=== PATIENT | female | born 1980 | race Caucasian/White ===

== ENCOUNTER → 2018-01-16 10:49 | Outpatient (REF) | payer MEDICAID, SELFPAY | LOC: LBN 10:49 | PROVIDERS: PCP Naturopath; Visit Provider Midwife | DX: O99.820 Streptococcus B carrier state complicating pregnancy (principal) | CPT/HCPCS: 87081 ==

== ENCOUNTER → 2018-01-16 11:02 | Outpatient (CLI) | payer MEDICAID, SELFPAY ==
[2018-01-16 12:24] LABS: HCT 34.7 % (36.0-46.0); HGB 11.5 g/dL (12.0-15.5); Mean Corp. HGB Concentration 33.1 g/dL (32.0-36.0); Mean Corpuscular Volume 84.4 fL (80-95); Mean Platelet Volume 11.1 fL (8.0-11.0); Platelet Count 241 x1000/uL (130-400); RBC 4.11 m/cumm (4.00-5.20); RBC Distribution Width 13.8 % (11.7-14.6); White Blood Cell Count 9.38 k/cumm (4.4-10.8)
[2018-01-16 12:44] LABS: Hemoglobin A1C 5.4 % (4.5-6.2)
[2018-01-16 13:07] LABS: Vitamin D 25 Total 41.4 ng/ml (30-100)
== END ==
PROVIDERS: Advanced Practice Midwife; PCP Naturopath; Visit Provider Midwife
DX: O09.523 Supervision of elderly multigravida, third trimester (principal); Z34.83 Encounter for supervision of other normal pregnancy, third trimester
CPT/HCPCS: 36415; 82306; 85027; 83036; 87081

== ENCOUNTER 2018-02-23 19:30 | Observation (INO) | payer MEDICAID, SELFPAY ==
[2018-02-23 21:40] LABS: Bilirubin Negative (Negative); Blood Negative (Negative); Clarity Clear; Glucose Negative (Negative); Ketones Trace mg/dL (Negative); Leukocyte Esterase Negative (Negative); Nitrite Negative (Negative); Urobilinogen 0.2 EU/dL (Up TO 0.2)
[2018-02-23] MEDS: hydrOXYzine PAMOATE 25 MG CAP 100 MG PO (21:47)
== END 2018-02-23 22:05 | disposition home or self-care (01) ==
PROVIDERS: Admitting Provider Advanced Practice Midwife; PCP Naturopath; Visit Provider Advanced Practice Midwife
DX: O47.1 False labor at or after 37 completed weeks of gestation (principal); O26.893 Other specified pregnancy related conditions, third trimester; O26.813 Pregnancy related exhaustion and fatigue, third trimester; Z3A.40 40 weeks gestation of pregnancy; F41.9 Anxiety disorder, unspecified
CPT/HCPCS: 81003

== ENCOUNTER 2018-02-26 04:15 | Inpatient (IN) | payer MEDICAID, SELFPAY ==
[2018-02-26 10:08] LABS: HCT 36.2 % (36.0-46.0); HGB 11.9 g/dL (12.0-15.5); Mean Corp. HGB Concentration 32.9 g/dL (32.0-36.0); Mean Corpuscular Hemoglobin 27.2 pg (27.0-33.0); Mean Corpuscular Volume 82.6 fL (80-95); Mean Platelet Volume 11.1 fL (8.0-11.0); Platelet Count 250 x1000/uL (130-400); RBC 4.38 m/cumm (4.00-5.20); RBC Distribution Width 15.1 % (11.7-14.6); White Blood Cell Count 13.16 k/cumm (4.4-10.8)
[2018-02-26] MEDS: Lactated Ringers 500 ML IV (10:14)
[2018-02-26] MEDS: Bupivacaine 0.25% Pres-Free 10 ML VIAL EP (10:39)
[2018-02-26] MEDS: Normal Saline Flush 10 ML SYR IVP (10:56)
[2018-02-26] MEDS: Lactated Ringers 1,000 ML 150 ML IV (13:32)
[2018-02-26] MEDS: Hamamelis Leaf/Glycerin 100 EACH BOX PR (17:57)
[2018-02-26] MEDS: Lidocaine 2% Pres-Free 5 ML VIAL 10 ML IJ (19:16)
[2018-02-27] MEDS: Ibuprofen 600 MG TAB PO ×4 (01:56→22:05)
[2018-02-27] MEDS: Acetaminophen 325 MG TAB 650 MG PO ×4 (05:40→21:21)
[2018-02-27 11:50] LABS: Abs Immature Grans 0.06 k/cumm (0.0-0.09); Absolute Basophil Count 0.03 k/cumm (0.0-0.2); Absolute Eosinophil Count 0.15 k/cumm (0.0-0.7); Absolute Monocyte Count 0.65 k/cumm (0.11-0.7); Absolute Neutrophil Count 9.29 k/cumm (1.2-6.7); Basophils % 0.2; Eosinophils % 1.2; HCT 30.5 % (36.0-46.0); HGB 10.1 g/dL (12.0-15.5); Immature Grans % 0.5; Lymphocytes % 19.7; Mean Corp. HGB Concentration 33.1 g/dL (32.0-36.0); Mean Corpuscular Hemoglobin 27.7 pg (27.0-33.0); Mean Corpuscular Volume 83.8 fL (80-95); Mean Platelet Volume 10.8 fL (8.0-11.0); Monocytes % 5.1; Neutrophils % 73.3; Platelet Count 248 x1000/uL (130-400); RBC 3.64 m/cumm (4.00-5.20); RBC Distribution Width 15.2 % (11.7-14.6); White Blood Cell Count 12.68 k/cumm (4.4-10.8)
[2018-02-28] MEDS: Acetaminophen 325 MG TAB 650 MG PO (00:52)
[2018-02-28] MEDS: Ibuprofen 600 MG TAB PO (11:36)
== END 2018-02-28 14:00 | disposition home or self-care (01) | DRG 807 ==
PROVIDERS: Advanced Practice Midwife; Admitting Provider Midwife; PCP Naturopath; Visit Provider Midwife
DX: O48.0 Post-term pregnancy (principal); Z37.0 Single live birth; Z3A.40 40 weeks gestation of pregnancy; O70.1 Second degree perineal laceration during delivery
CPT/HCPCS: 36415; 85027; 86850; 86900; 86901; 85025; J3010

== ENCOUNTER 2018-04-21 16:09 | Outpatient (REF) | payer MEDICAID, SELFPAY ==
--- NOTE | 2018-04-21 15:10 | PAPFT_PTH ---
PATIENT: Suri Cuellar LOC: [facility] U#:[id number] AGE/SX: 38/F ROOM: RE04/21/[address]: Tereso Chapman RN : 1980 BED: DIS: 04/21/2018 SPEC #: [id number] RECD: 04/21/18 18:03 STATUS: LANIE CALDERON #: [id number] GERMAN: 04/21/18 15:[address]: Tereso Chapman DEPT: [facility] Cytology RECD BY: Nighat Ahn ENTERED: 04/21/18 18:04 SP TYPE: PAPFT OTHR DR: Lucero Albert Tissues: 1 - CX/ENDOCX FOR PAP SMEARS Procedures: PAP THIN PREP/UVM Screening HPV DNA PROBE Comments: [id number]
== END 2018-04-21 16:29 ==
LOC: LBN 16:09
PROVIDERS: PCP Naturopath; Visit Provider Advanced Practice Midwife
DX: Z12.4 Encounter for screening for malignant neoplasm of cervix (principal); Z11.51 Encounter for screening for human papillomavirus (HPV)
CPT/HCPCS: 88142; 87624

== ENCOUNTER 2019-09-21 12:13 | Outpatient (REF) | payer MEDICAID, SELFPAY ==
[2019-09-23 09:09] LABS: COVID-19 RT-PCR UVMMC Result Negative (Negative)
== END 2019-09-21 12:33 ==
LOC: NCHCN 12:13
PROVIDERS: PCP Naturopath; Visit Provider Nurse Practitioner Family
DX: Z11.59 Encounter for screening for other viral diseases (principal)
CPT/HCPCS: U0003

== ENCOUNTER 2019-09-29 08:49 | Outpatient (REF) | payer MEDICAID, SELFPAY ==
[2019-09-29 15:22] LABS: HCT 39.4 % (36.0-46.0); Mean Corpuscular Hemoglobin 28.5 pg (27.0-33.0); Mean Corpuscular Volume 86.4 fL (80-95); Mean Platelet Volume 10.7 fL (8.0-11.0); Platelet Count 328 x1000/uL (130-400); RBC 4.56 m/cumm (4.00-5.20); White Blood Cell Count 5.58 k/cumm (4.4-10.8)
[2019-09-29 15:37] LABS: ALT 18 U/L (14-59); AST 11 U/L (15-37); Albumin 4.2 g/dL (3.4-5.0); Alkaline Phosphatase 54 U/L (46-116); Anion Gap 8.7 mmol/L (3-11); BUN 12 mg/dL (7-18); Bilirubin, Total 0.5 mg/dL (0.2-1.0); CO2 28.3 mmol/L (21.0-32.0); CREATININE 0.78 mg/dL (0.55-1.02); Calcium 9.1 mg/dL (8.5-10.1); Chloride 102 mmol/L (98-107); Glucose 88 mg/dL (74-106); Sodium 139 mmol/L (136-145); TSH (W/Ref FT4) 2.58 uIU/mL (0.36-3.74); Total Protein 7.4 g/dL (6.4-8.2)
[2019-10-01 11:18] LABS: EBV EA IgG Negative (Negative)
[2019-10-01 12:56] LABS: IgA 121 mg/dL (85-499); Tissue Transglutaminase IgA <1.2 U/mL (<4.0)
[2019-10-02 00:46] LABS: Anaplasma phagocytophilum Negative (Negative); B. miyamotoi PCR Negative (Negative); Babesia divergens/MO-1 Negative (Negative); Babesia duncani Negative (Negative); Babesia microti Negative (Negative); Ehrlichia chaffeensis Negative (Negative); Ehrlichia ewingii/canis Negative (Negative); Ehrlichia muris eauclairensis Negative (Negative)
[2019-10-02 11:38] LABS: Lyme Ab w Rflx to Lyme Confirm Negative (Negative)
== END 2019-09-29 09:09 ==
LOC: NCHCN 08:49
PROVIDERS: PCP Naturopath; Visit Provider Nurse Practitioner Family
DX: R53.83 Other fatigue (principal); M79.10 Myalgia, unspecified site; M25.50 Pain in unspecified joint; R19.7 Diarrhea, unspecified
CPT/HCPCS: 80053; 82784; 83516; 85027; 86663; 87798; 84443; 86618

== ENCOUNTER 2019-11-17 16:22 | Outpatient (REF) | payer MEDICAID, SELFPAY ==
[2019-11-19 20:40] LABS: COVID-19 RT-PCR UVMMC Result Negative (Negative)
== END 2019-11-17 16:42 ==
LOC: NCHCN 16:22
PROVIDERS: PCP Naturopath; Visit Provider Nurse Practitioner Family
DX: J06.9 Acute upper respiratory infection, unspecified (principal)
CPT/HCPCS: U0003

== ENCOUNTER 2019-12-25 17:57 | Outpatient (REF) | payer MEDICAID, SELFPAY ==
[2019-12-28 15:16] LABS: SARS-CoV-2 RNA Undetected (Undetected); SARS-CoV-2 Specimen Source Nasopharynx
== END 2019-12-25 18:17 ==
LOC: NCHCN 17:57
PROVIDERS: PCP Naturopath; Visit Provider Physician Assistant
DX: R50.9 Fever, unspecified (principal)
CPT/HCPCS: U0003

== ENCOUNTER 2020-02-17 09:39 | Outpatient (REF) | payer MEDICAID, SELFPAY ==
--- NOTE | 2020-02-17 09:15 | PAPFT_PTH ---
PATIENT: Suri Cuellar LOC: [facility] U#:[id number] AGE/SX: 40/F ROOM: RE02/17/[address]: Ingris Griffin NP : 1980 BED: DIS: 02/17/2020 SPEC #: [id number] RECD: 02/17/20 12:53 STATUS: LANIE REAndres #: [id number] GERMAN: 02/17/20 09:[address]: Ingris Griffin NP DEPT: [facility] Cytology RECD BY: Nighat Ahn ENTERED: 02/17/20 12:53 SP TYPE: PAPFT OTHR DR: Lucero Albert Tissues: 1 - CX/ENDOCX FOR PAP SMEARS Procedures: PAP THIN PREP/UVM Screening HPV DNA PROBE Comments: [id number]
== END 2020-02-17 09:59 ==
LOC: LBN 09:39
PROVIDERS: PCP Naturopath; Visit Provider Nurse Practitioner Women's Health
DX: Z12.4 Encounter for screening for malignant neoplasm of cervix (principal); Z11.51 Encounter for screening for human papillomavirus (HPV); Z87.42 Personal history of other diseases of the female genital tract
CPT/HCPCS: 88142; 87624

== ENCOUNTER 2020-03-02 00:36 | Outpatient (CLI) | payer MEDICAID, SELFPAY ==
--- NOTE | 2020-03-02 08:30 | DI.MAMMO_ITS ---
EXAM: MAMMO SCREENING CLINICAL HISTORY: screening TECHNIQUE: Mammograms were interpreted according to the usual protocol including computer analysis w [employer] CAD system, tomosynthesis and C-view imaging. COMPARISON: FINDINGS: Today's examination is a baseline examination. The patient is reportedly lactating. No dominant mas s or clumped microcalcification is identified in either breast. IMPRESSION: No specific evidence of malignancy at this time. The patient is reportedly lactating and follow-up m ammogram is requested when the patient has stopped lactating to provide a true baseline. BI-RADS Category 1 - Negative Breast Density - Category C - Heterogeneously dense
== END 2020-03-02 00:56 ==
PROVIDERS: PCP Naturopath; Visit Provider Nurse Practitioner Women's Health
DX: Z12.31 Encounter for screening mammogram for malignant neoplasm of breast (principal)
CPT/HCPCS: 77063; 77067

== ENCOUNTER 2022-05-30 02:45 | Outpatient (CLI) | payer BC, MEDICAID, SELFPAY ==
--- NOTE | 2022-05-30 08:00 | DI.MAMMO_ITS ---
Exam(s) MAMMO SCREENING EXAM: MAMMO SCREENING CLINICAL HISTORY: screening TECHNIQUE: Mammograms were interpreted according to the usual protocol including computer analysis w [employer] CAD system, tomosynthesis and C-view imaging. COMPARISON: 2019 FINDINGS: The breasts are composed of heterogeneously dense fibroglandular densities, Breast Density category C . No suspicious masses or suspicious microcalcifications are seen. No skin thickening or abnormal axillary lymph nodes are seen. There has been no significant change from prior exams. IMPRESSION: BI-RADS Category 1, Negative mammogram. Yearly screening mammography is recommended. Breast Density Category C, heterogeneously Dense. The mammogram demonstrates the patient's breast tissue is dense. Dense breast tissue is very common a nd is not abnormal but dense breast tissue can make it harder to find cancer on a mammogram. Also, de nse breast tissue may increase breast cancer risk. This information about the result of the mammogram report was provided to the patient to raise their awareness. Use this report when you speak with the patient about their risks for breast cancer, which includes their family history. At that time, you may recommend additional screening tests (Ultrasound or MRI) as they might be useful based on their r isk. A negative radiographic report should not delay biopsy if a dominant or clinically suspicious mass is present. Up to ten percent of cancers are not identified on mammography. A negative report may reinforce clinical impression. Adenosis and dense breasts may obscure an underlying neoplasm. False positive reports average 6 to 10%.
== END 2022-05-30 03:05 ==
PROVIDERS: PCP Naturopath; Visit Provider Obstetrics & Gynecology Gynecology
DX: Z12.31 Encounter for screening mammogram for malignant neoplasm of breast (principal)
CPT/HCPCS: 77063; 77067

== ENCOUNTER 2023-07-04 16:20 | Outpatient (REF) | payer BC, SELFPAY ==
--- NOTE | 2023-07-04 16:09 | PAPFT_PTH ---
PATIENT: Suri Cuellar LOC: [facility] U#:[id number] AGE/SX: 43/F ROOM: RE07/04/[address]: Miladys Singh : 1980 BED: DIS: 07/04/2023 SPEC #: [id number] RECD: 07/04/23 17:32 STATUS: LANIE REAndres #: [id number] GERMAN: 07/04/23 16:[address]: Miladys Singh DEPT: [facility] Cytology RECD BY: Nighat Ahn ENTERED: 07/04/23 17:32 SP TYPE: PAPFT OTHR DR: Lucero Albert Tissues: 1 - CX/ENDOCX FOR PAP SMEARS Procedures: PAP THIN PREP/UVM Screening HPV DNA PROBE Comments: [id number] (HPV 16 & 18/45)
== END 2023-07-04 16:21 | disposition home or self-care (01) ==
LOC: LBN 16:20
PROVIDERS: PCP Naturopath; Visit Provider Obstetrics & Gynecology Gynecology
DX: Z12.4 Encounter for screening for malignant neoplasm of cervix (principal); Z11.51 Encounter for screening for human papillomavirus (HPV)
CPT/HCPCS: 88142; 87624

== ENCOUNTER → 2023-07-09 01:05 | Outpatient (CLI) | payer BC, SELFPAY ==
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
--- OUTSIDE RECORDS SUMMARY | 2023-07-09 01:07 | XMS_ITS | Continuity of Care Document ---
Author Name Unknown Address [address] [place] [address] Phone [facility] Address [address] [place] [address] Phone Support Name Relationship Address Phone GEOVANY GALLEGOS Spouse Unknown [phone] [place] [address] Loida Lazar Attending Provider [facility] [place] [address] Referral, Self Referring Provider Unknown Unavail able Allergies, Adverse Reactions, Alerts Allergen Type Severity Reaction Last Updated Verified Status Sulfa (Sulfonamide Antibiotics) Allergy itchy throat, March 08 1:18pm Yes Active Medications Medication Status Dose Units Route Directions Qty Days Start Herbie e End Date Instructions Budesonide Active 1 SPR NA TWICE A DAY 8.43 S eptember 2019 11:43am administer into each nostril Problems Active Problems Medical Problem Onset Date Status Psychiatric care Active Nasal turbinate hypertrophy Acti ve Chronic fatigue Active Anemia Active Depression Active Recent weight loss Active Heart murmur Active Migraines Active Nasal congestion Active Deviated nasal septum Active Mitral valve prolapse Active Asthma Active Advance Directives Advance Directive Response Recorded Date/ Time Does patient have an Advanced Directive? No February 02, 2020 10:53am Do we have a copy on file here at [facility]? No February 02, 2020 10:53am Pt has a Living Will? No February 02, 2020 10:53am Do we have a copy on file here at [facility]? No February 02, 2020 10:53am Pt has a Power of Director [employer]? No Jan 10:53am Do we have a copy on file here at [facility]? No February 02, 2020 10:53am Chief Complaint and Reason for Visit Chief Complaint New Patient Follow Up Follow Up Reason for Visit Deviated nasal septu m Nasal congestion Nasal turbinate hypertrophy Deviated nasal septum Nasal congestion Nasal turbinate hypertrophy Chronic fatigue Encounters Encounter Location(s) Arrival/Admit Date Discharge/Depart Date Provider(s) Departed Physician/Prov ider Office Visit [facility] February 02, 2020 10:53am February 02, 2020 11:43am Loida Lazar DO Departed Physician/Prov ider Office Visit [facility] February 29, 2020 1:19pm February 29, 2020 1:19pm Loida Lazar DO Departed Physician/Prov ider Office Visit [facility] March 08, 2020 1:09pm March 08, 2020 1:43pm Loida Lazar DO Recent Diagnosis Onset Date Deviated nasal septum Nasal congestion Nasal turbinate hypertrophy Deviated nasal septum Nasal congestion Nasal turbinate hypertrophy Chronic fatigue Assessments Diagnosis Onset Date Resolution Status Deviated nasal septum acute Nasal congestion acute Nasal turbinate hypertrophy acute Deviated nasal septum acute Nasal congestion acute Nasal turbinate hypertrophy acute Chronic fatigue noneactive Family History Relationship Condition Age at Onset Recorded Date/T bonnie Not Specified Malignant neoplasm Unknown Diabetes mellitus Unknown Functional Status No Functional Status information available Goals Goals may be documented in an alternate section. Mental Status No Mental Status Information Available Medical Equipment No Medical Equipment Information available Insurance Providers Guarantor IJEOMA ARMENTA Address [address] [place] [address] Contact Info. Home Phone: Payer Policy Id Coverage Id Subscriber's Name Subscriber Id Effective Date Expiration Date [place] [id number] IJEOMA ARMENTA [id number] SELF PAY Self N/A Social History Assigned Sex Female Vital Signs Vital Reading Result Reference Range Collection Date/Time Height 70 [in_i] February 02, 2020 11:11am Weight 63.50 kg February 02, 2020 11:11am Body Temperature 98.9 [degF] 97.6-99.6 February 012019 11:11am Heart Rate 71 /min 60-100 February 02, 2020 11:11am Respiratory rate 18 /min 12-24 February 012019 11:11am Oxygen saturation by Pulse oximetry 98 % 95-100 February 02, 2020 11:11am BP Systolic 110 mm[Hg] 100-140 February 02, 2020 11:11am BP Diastolic 60 mm[Hg] 50-85 February 02, 2020 11:11am BMI (Body Mass Index) 20.0 kg/m2 2019 11:11am Height 70 [in_i] March 08 2 020 1:19pm Weight 63.50 kg March 08 2 020 1:19pm Body Temperature 98.0 [degF] 97.6-99.6 February 1:19pm Heart Rate 77 /min 60-100 March 08 2 020 1:19pm Respiratory rate 18 /min 12-24 February 1:19pm BP Systolic 115 mm[Hg] 100-140 March 08 2 020 1:19pm BP Diastolic 62 mm[Hg] 50-85 March 08, 2 020 1:19pm BMI (Body Mass Index) 20.0 kg/m2 [facility] 2019 1:19pm
--- OUTSIDE RECORDS SUMMARY | 2023-07-09 01:07 | XMS_ITS | Continuity of Care Document ---
Author Name Unknown Organization [facility] Address [address] [facility] [address] [place] [address]- Care Team Providers Care Supervisor Shuttle Veneering Name Role Phone Jayne Mandujano Primary Care Physician [phone] Encounter [facility] [id number] Date(s): 09/03/22 - 01/01/23 [facility] [address] [facility] [address] [place] [address]- Discharge Disposition: Other Attending Physician: Jayne Mandujano Admitting Physician: Jayne Mandujano Allergies, Adverse Reactions, Alerts Substance Reaction Severity Status sulfamethizole Facial swelling Moderate Active Medications Lexapro 20 mg oral tablet 20 mg = 1 tab(s), Oral, Daily, # 90 tab(s), 3 Refill(s), Pharmacy: [facility] #94, 1 tab(s) Oral Daily Start Date: 05/17/22 Status: Ordered Wellbutrin SR 150 mg/12 hours oral tablet, extended release 150 mg = 1 tab(s), Oral, BID, Start 1 tablet every morning. If desired, may increase to 1 tablet twice daily in 1 week, # 60 tab(s), 0 Refill(s), Pharmacy: [facility] #94, 1 tab(s) Oral BID,Instr:Start 1 tablet [...] Care Team Personnel Name: Jayne Mandujano Position: [facility] Physician Acute/Clinic/PNED Member Role: Primary Care Physician Address: Address: [address] P: [phone] F: [phone] [place] [address]- Care Team Related Persons Name: AHSLY ARMENTA Address: [address] [id number]
--- OUTSIDE RECORDS SUMMARY | 2023-07-09 01:07 | XMS_ITS | Continuity of Care Document ---
Author Name Unknown Address [address] [place] [address] Phone [facility] Address [address] [place] [address] Phone Care Team Providers Care Manufacturing Assistant Name Role Phone Out of Town, Provider Primary Care Provider Unav ailable Loida Lazar Attending Provider Allergies, Adverse Reactions, Alerts Allergen Type Severity Reaction Last Updated Verified Status Sulfa (Sulfonamide Antibiotics) Allergy itchy throat AND LIP SWELLING March 11, 2020 10:06am Yes Active Medications No known medications. Problems Active Problems Medical Problem Onset Date Status Psychiatric care Active Nasal turbinate hypertrophy Acti ve Chronic fatigue Active Anemia Active Depression Active Recent weight loss Active Heart murmur Active Migraines Active Nasal congestion Active Deviated nasal septum Active Mitral valve prolapse Active Asthma Active Relevant Diagnostic Tests and/or Laboratory Data Laboratory Results Test Date/Time Result Interpretation Reference Range Result Comment Performing Site Coronavirus 2019 PCR Interp March 22, 2020 10:00am Negative Negative This test has not been FDA cleared or approved. This testhas been authorized by FDA under an EUA for use byauthorized laboratories. This test has been authorized onlyfor detection of nucleic acid from 2018-, not for anyother viruses or pathogens. This test is only authorizedfor the duration of the declaration that circumstancesexi st justifying the authorization of emergency use of invitro diagnostic tests for detection and/or diagnosis [id number] under section 564(b)(1) of Act, 21 U.S.C ?360bbb-3(b) (1), unless the authorization is terminated orrevoked sooner.Negative results do not preclude 2019-nCoV infection andshould not be used as the sole basis for treatment or otherpatient management decisions. Negative results must becombined with clinical observations, patient history, andepidemiologic al information.Perf ormed on the [employer] Fusion instrument [facility] Reference Lab Test Performing Site March 22, 2020 10:00am [place] [facility] COVID Source: NPPlease indicate the Triage [id number] performed or referred byThe [address] Advance Directives Advance Directive Response Recorded Date/ Time Does patient have an Advanced Directive? No February 02, 2020 10:53am [place] [facility] [place] February 02, 2020 10:53am Pt has a Living Will? No February 02, 2020 10:53am Do we [place] a [place] [facility] No February 02, 2020 10:53am Pt has a Power of Supervisor Cell Room? No Jan 10:53am Do we have a [place] [facility] No February 02, 2020 10:53am Chief Complaint and Reason for Visit Chief Complaint New Patient Follow Up Follow Up COVID SWAB Reason for Visit Deviated nasal septu m Nasal congestion Nasal turbinate hypertrophy Deviated nasal septum Nasal congestion Nasal turbinate hypertrophy Chronic fatigue Deviated nasal septum Nasal congestion Nasal turbinate hypertrophy Chronic fatigue Encounters Encounter Location(s) Arrival/Admit Date Discharge/Depart Date Provider(s) Departed Physician/Prov ider Office Visit -[facility] February 02, 2020 10:53am February 02, 2020 11:43am Loida Lazar DO Departed Physician/Prov ider Office Visit -[facility] February 29, 2020 1:19pm February 29, 2020 1:19pm Loida Lazar DO Departed Physician/Prov ider Office Visit -[facility] March 08, 2020 1:09pm March 08, 2020 1:43pm Loida Lazar DO Departed Clinical -Curbside March 22, 2020 7:49am March 22, 2020 7:50am Loida Lazar DO Recent Diagnosis Onset Date Deviated nasal septum Nasal congestion Nasal turbinate hypertrophy Deviated nasal septum Nasal congestion Nasal turbinate hypertrophy Chronic fatigue Deviated nasal septum Nasal congestion Nasal turbinate hypertrophy Chronic fatigue Assessments Diagnosis Onset Date Resolution Status Deviated nasal septum acute Nasal congestion acute Nasal turbinate hypertrophy acute Deviated nasal septum acute Nasal congestion acute Nasal turbinate hypertrophy acute Chronic fatigue noneactive Deviated nasal septum acute Nasal congestion acute [...] available Insurance Providers Guarantor IJEOMA ARMENTA Address [address] [place] [id number] Contact Info. Home Phone: Payer Policy Id Coverage Id Subscriber's Name Subscriber Id Effective Date Expiration Date [place] [id number] IJEOMA ARMENTA [id number] SELF PAY Self N/A Social History Observation Status Observation Response Date of Response Alcohol Use No March 11 2:40pm Substance/Street Drug Use No Octobe r 2019 2:40pm substance use type does not use March 11, 2020 9:59am Assigned Sex Female Vital Signs Vital Reading [...] 2019 11:11am Height 70 [in_i] March 08 020 1:19pm Weight 63.50 kg March 08 020 1:19pm Body Temperature 98.0 [degF] 97.6-99.6 February 1:19pm Heart Rate 77 /min 60-100 March 08 020 1:19pm Respiratory rate 18 /min 12-24 February 1:19pm BP Systolic 115 mm[Hg] 100-140 March 08 2 020 1:19pm BP Diastolic 62 mm[Hg] 50-85 March 08 2 020 1:19pm BMI (Body Mass Index) 20.0 kg/m2 Octobe r 2019 1:19pm
--- OUTSIDE RECORDS SUMMARY | 2023-07-09 01:07 | XMS_ITS | Continuity of Care Document ---
Author Name Unknown Address [address] [place] [address] Phone Organization [facility] Address [address] [place] [address] Phone Support Name Relationship Address Phone GEOVANY GALLEGOS Spouse Unknown Amada Pugh [place] [address] Loida Lazar Attending Provider [facility] [place] [address] Allergies, Adverse Reactions, Alerts Allergen Type Severity Reaction Last Updated Verified Status Sulfa (Sulfonamide Antibiotics) Allergy itchy throat, February 01 020 11:07am Yes Active Medications No known medications. Problems [...] have a copy on file here at [facility]? No February 02, 2020 10:53am Pt has a Living Will? No February 02, 2020 10:53am Do we have a copy on file here at [facility]? No February 02, 2020 10:53am Pt has a Power of Identification Printing Machine Setter? No Jan 10:53am Do we have a copy on file here at [facility]? No February 02, 2020 10:53am Chief Complaint and Reason for Visit Chief Complaint New Patient Encounters Encounter Location(s) Arrival/Admit Date Discharge/Depart Date Provider(s) Departed Physician/Prov ider Office Visit [facility] February 02, 2020 10:53am February 02, 2020 11:43am Loida Lazar , Assessments No Assessments Information Available Family History Relationship Condition Age at Onset Recorded Date/T bonnie Not Specified Malignant neoplasm Unknown Diabetes mellitus Unknown Functional Status No Functional Status information available Goals Goals may be documented in an alternate section. Mental Status No Mental Status Information Available Medical Equipment No Medical Equipment Information available Insurance Providers Guarantor IJEOMA GEOVANY Address [address] [place] [address] Contact Info. Home Phone: Payer Policy Id Coverage Id Subscriber's Name Subscriber Id Effective Date Expiration Date [place] [id number] IJEOMA ARMENTA [id number] SELF PAY Self N/A Social History Assigned [...]
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
--- OUTSIDE RECORDS SUMMARY | 2023-07-09 01:07 | XMS_ITS | Continuity of Care Document ---
Author Name Unknown Address [address] [place] [address] Phone [facility] Address [address] [place] [address] Phone Care Team Providers Care Rn Bone Marrow Transplant Name Role Phone Out of Town, Provider Primary Care Provider Unav ailable Loida Lazar Attending Provider Allergies, Adverse Reactions, Alerts Allergen Type Severity Reaction Last Updated Verified Status Sulfa (Sulfonamide Antibiotics) Allergy itchy throat AND LIP SWELLING March 25, 2020 8:02am Yes Active Medications Medication Status Dose Units Route Directions Qty Days St art Date End Date Instructions Azithromycin (Zithromax Z-Clem) 250 mg Tablet Active 0 .ROUTE .COMPLEX 1 March 25, 2020 10:07am take 500 mg by mouth today (day 1), then 250 mg for 4 days (days 2-5) Hydrocodone-Ac etaminophen ([place]) 7.5-325 mg Tablet Active 1 TAB PO Q6H March 25, 2020 10:07am Ondansetron Active 8 MG PO THREE TI MES A DAY March 25, 2020 10:08am Problems Active Problems Medical Problem Onset Date [...] authorized onlyfor detection of nucleic acid from 2019-nCoV, not for anyother viruses or pathogens. This test is only authorizedfor the duration of the declaration that circumstancesexi st justifying the authorization of emergency use of invitro diagnostic tests for detection and/or diagnosis [id number] under section 564(b)(1) of Act, 21 U.S.C ?360bbb-3(b) (1), unless the authorization is terminated orrevoked sooner.Negative results do not preclude 2019-nCoV infection andshould not be used as the sole basis for treatment or otherpatient management decisions. Negative results must becombined with clinical observations, patient history, andepidemiologic al information.Perf ormed on the [employer] [place] Fusion instrument [place] [facility] Reference Lab Test Performing Site March 22, 2020 10:00am [place] [facility] COVID Source: NPPlease indicate the Triage [id number] performed or referred byThe [address] Advance Directives Advance Directive Response Recorded Date/ Time Does patient have an Advanced Directive? No February 02, 2020 10:53am [place] [facility] February 02, 2020 10:53am Pt has a Living Will? No February 02, 2020 10:53am Do we [place] a [place] [facility] No February 02, 2020 10:53am Pt has a Power of Bulldozer Operator? No Jan 10:53am Do we [place] a [place] [facility] No February 02, 2020 10:53am Chief Complaint and Reason for Visit Chief Complaint New Patient Follow Up Follow Up COVID SWAB Chronic fatigue, unspecified, Nasal congestion Reason for Visit Deviated nasal septu m Nasal congestion Nasal turbinate hypertrophy Deviated nasal septum Nasal congestion Nasal turbinate hypertrophy Chronic fatigue Deviated nasal septum Nasal congestion Nasal turbinate hypertrophy Chronic fatigue Encounters Encounter Location(s) Arrival/Admit Date Discharge /Depart Date Provider(s) Departed Physician[facility]vi [facility] 02, 2020 10:53am February 02, 2020 11:43am Loida Lazar DO Departed Physician[facility]vi [facility] February 29, 2020 1:19pm February 29, 2020 1:19pm Loida Lazar DO Departed Physician/Provi [facility] March 08, 2020 1:09pm March 08, 2020 1:43pm Loida Lazar DO Departed Clinical [facility] March 22, 2020 7:49am March 22, 2020 7:50am Loida Lazar DO [facility] March 25, 2020 7:48am March 25, 2020 12:41pm Loida Lazar DO Recent Diagnosis Onset Date [...] available Insurance Providers Guarantor IJEOMA ARMENTA Address [address] [place] [id number] Contact Info. Home Phone: Payer Policy Id Coverage Id Subscriber's Name Subscriber Id Effective Date Expiration Date [place] [id number] IJEOMA ARMENTA [id number] SELF PAY Self N/A Plan of Treatment Future Tests Future scheduled test information is unavailable Pending Tests Pending diagnostic test information is unavailable Future Visits Future appointment information is unavailable Referrals to Other Providers Reason for Referral Referral Start Date Provider Provider Contact Information Provider Address Loida Lazar , DO Work Phone: [facility] [address] [facility] [address] Future Procedures Future procedure information is unavailable Future Medications Future medication information is unavailable Patient Instructions COVID 19 General Instruction s- decrease the spread of coronavirus ([facility] Social History Observation Status Observation Response Date of Response Alcohol Use No March 11 2:40pm Substance/Street Drug Use No Febobe 2019 2:40pm substance use type does not use March 11, 2020 9:59am Assigned Sex Female Vital Signs Vital Reading Result Reference Range Collection Date/Time Height 70 [in_i] February 02, 2020 11:11am Weight 63.50 kg February 02, 2020 11:11am Body Temperature 98.9 [degF] 97.6-99.6 February 012019 11:11am Heart Rate 71 /min 60-100 February 02, 2020 11:11am Respiratory rate 18 /min 12-February 012019 11:11am Oxygen saturation by Pulse oximetry 98 % 95-100 February 02, 2020 11:11am BP Systolic 110 mm[Hg] 100-140 February 02, 2020 11:11am BP Diastolic 60 mm[Hg] 50-85 February 02, 2020 11:11am BMI (Body Mass Index) 20.0 kg/m2 2019 11:11am Height 70 [in_i] March 08 1:19pm Weight 63.50 kg March 08 020 1:19pm Body Temperature 98.0 [degF] 97.6-99.6 February 1:19pm Heart Rate 77 /min 60-100 March 08 020 1:19pm Respiratory rate 18 /min -February 1:19pm BP Systolic 115 mm[Hg] 100-140 March 08 020 1:19pm BP Diastolic 62 mm[Hg] 50-85 March 08 020 1:19pm BMI (Body Mass Index) 20.0 kg/m2 Octobe 2019 1:19pm Height 70 [in_i] October 16th, 2 020 9:59am Weight 63.50 kg March 11, 020 9:59am Body Temperature 98.0 [degF] 97.6-99.6 February 12:41pm Heart Rate 77 /min 60-100 March 25, 020 12:41pm Respiratory rate 16 /min 12-24 February 12:41pm Oxygen saturation by Pulse oximetry 96 % 95-100 March 25, 2020 2:41pm BP Systolic 120 mm[Hg] 100-140 March 25, 020 12:41pm BP Diastolic 56 mm[Hg] 50-85 March 25, 020 12:41pm BMI (Body Mass Index) 20.0 kg/m2 Octobe r 2019 9:59am
--- OUTSIDE RECORDS SUMMARY | 2023-07-09 01:07 | XMS_ITS | Continuity of Care Document ---
Author Name Unknown Organization [facility] Address [address] [facility] [address] [place] [address]- Care Team Providers Care Shop Welder Name Role Phone Jayne Mandujano Primary Care Physician [phone] Encounter HO_AL Date(s): 08/16/21 - 08/16/21 [facility] [address] [facility] [address] [place] [address]- Discharge Disposition: Home Attending Physician: Jayne Mandujano Admitting Physician: Jayne Mandujano Allergies, Adverse Reactions, Alerts Substance Reaction Severity Status sulfamethizole Facial swelling Moderate Active Assessment and Plan Future Appointments Functional Status 08/16/21 Recent Travel History No recent travel Family Member Travel History No recent t ravel COVID-19 Screening None Medications No Known Medications Social History Social History Type Response Tobacco Former tobacco user Tobacco Use:. quit 15 years ago per day. Sex Care Team Personnel Name: Jayne Mandujano Address: [facility] [address] [facility] P: [phone] F: [phone] [place], [place] [address]
--- OUTSIDE RECORDS SUMMARY | 2023-07-09 01:07 | XMS_ITS | Continuity of Care Document ---
Author Name [facility] Address [address] [place] [address] Organization [facility] Address [address] [place] [address] Care Team Providers Care Cardiopulmonary Supervisor Name Role Phone Loida Lazar Attending Physician [phone] BONNY VEGA Primary Care Physician [phone] Allergies, Adverse Reactions, Alerts Allergen Type Severity Reaction Last Updated Verified Status Sulfa (Sulfonamide Antibiotics) Allergy itchy throat AND LIP SWELLING March 25, 2020 Y Active Medications Active Medications Medication Dose Units Route Sig Qty Days Start Date Status Ins tructions Azithromycin [Zithromax Z-Clem] 0 Route .COMPLEX 1 February Active take 500 mg by mouth today (day 1), then 250 mg for 4 days (days 2-5) Hydrocodone-Acet aminophen [Breda] 1 TAB ORAL Q6H PRN For Pain March 25, 2020 Active Ondansetron 8 MG ORAL THREE TIMES A DAY March 25, 2020 Active Problem List Active Problems Medical Problem Onset Date Status Psychiatric care Nasal turbinate hypertrophy Acti ve Chronic fatigue Anemia Depression Recent weight loss Heart murmur Migraines Nasal congestion Active Deviated nasal septum Active Mitral valve prolapse Asthma Procedures Procedure Date Status Provider(s) Bilateral nasal turbinate mu cosal cauterization or ablation March 25, 2020 completed Bladimir Lazar DO Septoplasty March 25, 2020 completed Bunny Lazar DO Relevant Diagnostic Tests and/or Laboratory Data Laboratory Results Test Date/Time Result Interp. Ref. Range Result Co mment Coronavirus 2019 PCR Interp March 22, 2020 10:00am Negative This test has no t been FDA cleared or approved. This test has been authorized by FDA under an EUA for use by authorized laboratories. This test has been authorized only for detection of nucleic acid from 2019-nCoV, not for any other viruses or pathogens. This test is only authorized for the duration of the declaration that circumstances exist justifying the authorization of emergency use of in vitro diagnostic tests for detection and/or diagnosis of 2019-nCoV under section 564(b)(1) of Act, 21 U.S.C ? 360bbb-3(b) (1), unless the authorization is terminated or revoked sooner. Negative results do not preclude 2019-nCoV infection and should not be used as the sole basis for treatment or other patient management decisions. Negative results must be combined with clinical observations, patient history, and epidemiological information. Performed on the Vital Energi Fusion instrument Reference Lab Test Performing Site March 22, 2020 10:00am [employer] [facility] lab COVID Source: COMMISSION AUDITOR Please indicate the Triage Tier1 Test performed [place] [address] Advance Directives Advance Directive Response Recorded Date/ Time Do we have a copy on file here at [facility]? No February 02, 2020 10:53am Does patient have an Advanced Directive? No February 02, 2020 10:53am Pt has a Living Will? No February 02, 2020 10:53am Pt has a Power of Tufting Machine Fixer? No Sept 2019 10:53am Chief Complaint and Reason for Visit Encounter Admit Date Chief Complaint Reason for V isit Registered Inpatient March 25, 2020 7:48am Chronic fatigue, unspecified, Nasal congestion Hospital Discharge Instructions No known hospital discharge instructions. Hospital Discharge Medications Medication Dose Units Route Sig Qty Days Order Date Status Ins tructions Azithromycin 0 Route .COMPLEX 1 5 Oc tob2019 Active take 500 mg by mouth today (day 1), then 250 mg for 4 days (days 2-5) Hydrocodone-Acet aminophen 1 TAB ORAL Q6H PRN For Pain March 25, 2020 Active Ondansetron 8 MG ORAL THREE TIMES A DAY March 25, 2020 Active Encounters Encounter Facility Location Admit/Visit Date Discharge/Departure Date Attending Provider Registered Inpatient [facility] ENT March 25, 2020 7:48am Loida Lazar Departed Clinical [facility] Curbside March 22, 2020 7:49am March 22, 2020 7:50am Loida Lazar Departed Physician/Pr ovider Office Visit [facility] ENT March 08, 2020 1:09pm March 08, 2020 1:43pm Loida Lazar Departed Physician/Pr ovider Office Visit [facility] ENT February 29, 2020 1:19pm February 29, 2020 1:19pm Loida Lazar Departed Physician/Pr ovider Office Visit [facility] ENT February 02, 2020 10:53am February 02, 2020 11:43am Loida Lazar Functional Status No known functional status. Immunizations No known immunizations. Plan of Care Instructions COVID 19 General Instruction s- decrease the spread of coronavirus ([facility]) Social History Query Response Date Recorded Comment Alcohol Use No March 11, 2020 2:40pm Substance/Street Drug Use No March 11 0 2:40pm substance use type does not use March 11, 2020 9:59a m Vital Signs Vital Reading Result Reference Range Collection Date/Time Height 5 ft 10 in March 11 0 9:59am Weight 63.503 kg March 11 0 9:59am Temperature 98.0 F 97.6 F-99.6 F March 25 20 12:41pm Pulse 77 BPM 60-100 March 25 0 12:41pm Respiration 16 RPM 12-March 25 0 12:41pm Pulse Oximetry 96 % 95-100 March 25 020 12:41pm Blood Pressure Systolic 120 100-140 Octo 2019 12:41pm Blood Pressure Diastolic 56 50-85 Oct [email or web address] 12:41pm Body Mass Index 20.0 March 11, 2020 9:59am
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
--- OUTSIDE RECORDS SUMMARY | 2023-07-09 01:07 | XMS_ITS | Continuity of Care Document ---
Author Name Unknown Address [address] [place] [address] Phone [facility] Address [address] [place] [address] Phone Care Team Providers Care Spooling Supervisor Name Role Phone Out of Town, Provider [...] for 4 days (days 2-5) Hydrocodone-Ac etaminophen ([place]) 7.5-325 mg Tablet Active 1 TAB PO [...] invitro diagnostic tests for detection and/or diagnosis [id number] under section 564(b)(1) of Act, 21 U.S.C ?360bbb-3(b) (1), unless the authorization is terminated orrevoked sooner.Negative results do not preclude 2019-nCoV infection andshould not be used as the sole basis for treatment or otherpatient management decisions. Negative results must becombined with clinical observations, patient history, andepidemiologic al information.Perf ormed on the Mobile Patrol Elmer Fusion instrument [employer] Reference Lab Test Performing Site March 22, 2020 10:00am [facility] COVID Source: NPPlease indicate the Triage [id number] performed or referred byThe [address] Advance Directives Advance Directive Response Recorded Date/ Time Does patient have an Advanced Directive? No February 02, 2020 10:53am Do we have a copy on file here at [facility]? No February 02, 2020 10:53am Pt has a Living Will? No February 02, 2020 10:53am Do we have a copy on file here at [facility]? No February 02, 2020 10:53am Pt has a Power of Unix Consultant? No Jan 10:53am Do we have a copy on file here at [facility]? No February 02, 2020 10:53am Chief Complaint [...] Date Provider(s) Departed Phys[facility] February 02, 2020 10:53am February 02, 2020 11:43am Loida Lazar DO Departed Physician[facility]vi [facility] February 29, 2020 1:19pm February 29, 2020 1:19pm Loida Lazar DO Departed Physician/Provi [facility] March 08, 2020 1:09pm March 08, 2020 1:43pm Loida Lazar DO Departed Clinical [facility] [place] March 22, 2020 7:49am March 22, 2020 7:50am Loida Lazar DO [facility] March 25, 2020 7:48am [...] available Insurance Providers Guarantor IJEOMA ARMENTA Address [address] [place] [id number] Contact Info. Home Phone: Payer Policy Id Coverage Id Subscriber's Name Subscriber Id Effective Date Expiration Date [place] [id number] IJEOMA ARMENTA [id number] SELF PAY Self N/A Plan of Treatment Future Tests Future scheduled test information is unavailable Pending Tests Pending diagnostic test information is unavailable Future Visits Future appointment information is unavailable Referrals to Other Providers Reason for Referral Referral Start Date Provider Provider Contact Information Provider Address Loida Lazar , DO Work Phone: [facility] [address] [facility] [address] Future Procedures Future procedure information is unavailable Future Medications Future medication information is unavailable Patient Instructions COVID 19 General Instruction s- decrease the spread of coronavirus ([facility]) Social History Observation Status Observation Response Date [...]
--- OUTSIDE RECORDS SUMMARY | 2023-07-09 01:07 | XMS_ITS | Continuity of Care Document ---
Author Name [facility] Address [address] [place] [address] Organization [facility] Address [address] [place] [address] Care Team Providers Care Valet Manager Name Role Phone Out of Town, Provider Primary Care Physician Loida Villarreal Attending Physician Allergies, Adverse Reactions, Alerts Allergen Type Severity Reaction Last Updated Verified Status Sulfa (Sulfonamide Antibiotics) Allergy itchy throat AND LIP SWELLING March 11, 2020 Y Active Medications No known medications. Problem List Active Problems Medical Problem Onset Date Status Psychiatric care Nasal turbinate hypertrophy Acti ve Chronic fatigue Anemia Depression Recent weight loss Heart murmur Migraines Nasal congestion Active Deviated nasal septum Active Mitral valve prolapse Asthma Procedures No known history of procedures. Relevant Diagnostic Tests and/or Laboratory Data Laboratory Results Test Date/Time Result Interp. Ref. Range Result Co mment Coronavirus 2018 PCR Interp March 22, 2020 10:00am Negative [...] history, and epidemiological information. Performed on the Kelway[employer] Fusion instrument Reference Lab Test Performing Site March 22, 2020 10:00am [facility] COVID Source: LANGUAGE PATHOLOGIST Please indicate the Triage Tier1 Test performed or referred by The [address] [address] Advance Directives Advance Directive Response Recorded Date/ Time Do we have a copy on file here at [facility]? No February 02, 2020 10:53am Does patient have an Advanced Directive? No February 02, 2020 10:53am Pt has a Living Will? No February 02, 2020 10:53am Pt has a Power of Rail Car Operator? No Jan 10:53am Hospital Discharge Instructions No known hospital discharge instructions. Encounters Encounter Facility Location Admit/Visit Date Discharge/Departure Date Attending Provider Departed Clinical [facility] Curbside March 22, 2020 7:49am March 22, 2020 7:50am Loida Lazar Departed Physician/Pr ovider Office Visit [facility] March 08, 2020 1:09pm March 08, 2020 1:43pm Loida Lazar Departed Physician/Pr ovider Office Visit [facility] February 29, 2020 1:19pm February 29, 2020 1:19pm Loida Lazar Departed Physician/Pr ovider Office Visit [facility] February 02, 2020 10:53am February 02, 2020 11:43am Loida Lazar Functional Status No known functional status. Immunizations No known immunizations. Plan of Care No Known Plan of Care Information Social History Query Response Date Recorded Comment Alcohol Use No March 11, 2020 2:40pm Substance/Street Drug Use No March 11 0 2:40pm substance use type does not use March 11, 2020 9:59a m Vital Signs Vital Reading Result Reference Range Collection Date/Time Height 5 ft 10 in March 08 0 1:19pm Weight 63.503 kg March 08 0 1:19pm Temperature 98.0 F 97.6 F-99.6 F March 08 20 1:19pm Pulse 77 BPM 60-100 March 08 0 1:19pm Respiration 18 RPM 12-24 March 08 0 1:19pm Pulse Oximetry 98 % 95-100 February 02, 2020 11:11am Blood Pressure Systolic 115 100-140 Octo jessie 2019 1:19pm Blood Pressure Diastolic 62 50-85 Oct bladimir 2019 1:19pm Body Mass Index 20.0 March 08, 2020 1:19pm
--- OUTSIDE RECORDS SUMMARY | 2023-07-09 01:07 | XMS_ITS | Continuity of Care Document ---
Author Name Unknown Organization [facility] Address [address] [facility] [address] [place] [address]- Care Team Providers Care Site Administrator Name Role Phone Jayne Mandujano Primary Care Physician Encounter [facility] Date(s): 05/17/22 - 05/17/22 [facility] [address] [facility] [address] [place] [address]- Encounter Diagnosis Depression(Discharge Diagnosis) - 05/17/22 Disordered eating(Discharge Diagnosis) - 05/17/22 Anxiety(Discharge Diagnosis) - 05/17/22 Discharge Disposition: Home Attending Physician: Jayne Mandujano Admitting Physician: Jayne Mandujano Allergies, Adverse Reactions, Alerts Substance Reaction Severity Status sulfamethizole Facial swelling Moderate Active Functional Status 05/17/22 Recent Travel History No recent travel Family Member Travel History No recent t ravel COVID-19 Screening None Medications Lexapro 20 mg oral tablet 20 mg = 1 tab(s), Oral, Daily, # 90 tab(s), 3 Refill(s), Pharmacy: [facility] #94, 1 tab(s) Oral Daily Start Date: [...] PERFORM Event Display: Office/Clinic Note Authored Date: [id number] SURI ARMENTA :1980 Age:42 years Sex:Female Primary Care Physician: Jayne Mandujano Chief Complaint Zoom visit for a F/U. Currently taking 20 mg of Lexapro. ?? No concerns today. ?? History of Present Illness Suri is reached by Zoom to check-in about anxiety and depression.?? About 2 weeks ago we increasedLexapro to 20 mg.?? She has already noticed eye discharge differential.?? Feels much calmer, less panic and fear, therapy and bodywork seems to be working better.?? She is sleeping better and has more appetite.?? Overall she feels better than she has in a long time and feels like she is making a lot of progress in therapy, although it has been hard. No SI HI thoughts of self-harm.?? Eating is still challenging but is definitely better than it was. ?? There is a question of whether or not she might have another ovarian cyst, she is getting an ultrasound soon Review of Systems ROS negative except as noted in HPI Physical Exam GEN: NAD HEENT: PERRL, Conjunctivae clear. PULM: Nonlabored NEURO: A&Ox4 PSYCH: appropriate mood and affect Assessment/Plan 1.??Depression??F32.A 2.??Anxiety??F41.9 3.??Disordered eating??F50.9 Follow-up in 2 to 3 months, she would like to discuss possible herbal treatments if something is found on ultrasound.?? Offered to follow-up as needed, if she is stable on medication she does not need to be seen every 3 months, but she would prefer to be on the schedule if needed as her anxiety anddepression can ebb and flow significantly without warning, which I think is reasonable ?? Discussed and agreed upon plan of [...] Oral, Daily, 3 refills Allergies sulfamethizole??(Facial swelling) Social History Alcohol Current, 1-2 times per year Electronic Cigarette/Vaping Electronic Cigarette Use: Never. Substance Abuse Never Tobacco Former tobacco user Tobacco Use:. Family History Bile duct adenocarcinoma: Mother. CLL - Chronic lymphocytic leukemia: Mother. Hodgkin disease: Father. Lymphoma: Father. [Electronically Signed on: 05/17/2022 10:44 EST] Jayne Mandujano [Verified on: 05/17/2022 10:44 EST] Jayne Mandujano Patient Care team information Personnel Name: Jayne Mandujano Address: Address: [address] P: [phone] F: [phone]
--- OUTSIDE RECORDS SUMMARY | 2023-07-09 01:08 | XMS_ITS | Continuity of Care Document ---
Author Name Unknown Address [address] [place] [address] Phone [facility] Address [address] [place] [address] Phone Care Team Providers Care Price Analyst Name Role Phone Out of Town, Provider Primary Care Provider Unav ailable Loida Lazar Attending Provider Allergies, Adverse Reactions, Alerts Allergen Type Severity Reaction Last Updated Verified Status Sulfa (Sulfonamide Antibiotics) Allergy itchy throat AND LIP SWELLING March 31, 2020 11:35am Yes Active Medications Medication Status Dose Units Route Directions Qty Days St art Date End Date Instructions Azithromycin (Zithromax Z-Clem) 250 mg Tablet Discontin ued 0 .ROUTE .COMPLEX 1 March 25, 2020 9:07am Novemb er 2019 12:01a m take 500 mg by mouth today (day 1), then 250 mg for 4 days (days 2-5) Hydrocodone-A cetaminophen ([place]) 7.5-325 mg Tablet Active 1 TAB PO Q6H March 25, 2020 9:07am Ondansetron Active 8 MG PO THREE TI MES A DAY March 25, 2020 9:08am Problems Active Problems Medical Problem Onset Date Status Psychiatric care Active Nasal turbinate hypertrophy Acti ve Chronic fatigue Active Anemia Active Depression Active Recent weight loss Active Heart murmur Active Migraines Active Nasal congestion Active Alee bullosa Active Deviated nasal septum Active Mitral valve prolapse Active Asthma Active Relevant Diagnostic Tests and/or Laboratory Data Laboratory Results Test Date/Time Result Interpretation Reference Range Result Comment Performing Site Coronavirus 2019 PCR Interp March 22, 2020 9:00am Negative Negative This test has not been [...] invitro diagnostic tests for detection and/or diagnosis [id number] under section 564(b)(1) of Act, 21 U.S.C ?360bbb-3(b) (1), unless the authorization is terminated orrevoked sooner.Negative results do not preclude 2019-nCoV infection andshould not be used as the sole basis for treatment or otherpatient management decisions. Negative results must becombined with clinical observations, patient history, andepidemiologic al information.Perf ormed on the [employer] [place] [facility] instrument [facility] Reference Lab Test Performing Site March 22, 2020 9:00am [place] [facility] COVID Source: NPPlease indicate the Triage [id number] performed or referred byThe [address] Advance Directives Advance Directive Response Recorded Date/ Time Does patient have an Advanced Directive? No February 02, 2020 9:53am Do we have a copy on file here at [facility]? No February 02, 2020 9:53am Pt has a Living Will? No February 02, 2020 9:53am Do we have a copy on file here at [facility]? No February 02, 2020 9:53am Pt has a Power of Hydroelectric Station Chief? No Jan 9:53am Do we have a copy on file here at [facility]? No February 02, 2020 9:53am Chief Complaint and Reason for Visit Chief Complaint New Patient Follow Up Follow Up COVID SWAB Chronic fatigue, unspecified, Nasal congestion Follow Up Reason for Visit Deviated nasal septu m Nasal congestion Nasal turbinate hypertrophy Deviated nasal septum Nasal congestion Nasal turbinate hypertrophy Chronic fatigue Deviated nasal septum Nasal congestion Nasal turbinate hypertrophy Chronic fatigue Alee bullosa Deviated nasal septum Nasal congestion Nasal turbinate hypertrophy Encounters Encounter Location(s) Arrival/Admit Date Discharge /Depart Date Provider(s) Departed [facility], 2020 9:53am February 02, 2020 10:43am Loida Lazar DO Departed Physician[facility] February 29, 2020 12:19pm February 29, 2020 12:19pm Loida Lazar DO Departed Physician[facility] March 08, 2020 12:09pm March 08, 2020 12:43pm Loida Lazar DO Departed Clinical [facility] March 22, 2020 6:49am March 22, 2020 6:50am Loida Lazar DO [facility] March 25, 2020 6:48am March 25, 2020 11:41am Loida Lazar DO Departed Physician[facility] March 31, 2020 11:23am March 31, 2020 1:01pm Loida Lazar DO Recent Diagnosis Onset Date Deviated nasal septum Nasal congestion Nasal turbinate hypertrophy Deviated nasal septum Nasal congestion Nasal turbinate hypertrophy Chronic fatigue Deviated nasal septum Nasal congestion Nasal turbinate hypertrophy Chronic fatigue Alee bullosa Deviated nasal septum Nasal congestion Nasal turbinate hypertrophy Assessments Diagnosis Onset Date Resolution Status Deviated nasal septum acute Nasal congestion acute Nasal turbinate hypertrophy acute Deviated nasal septum acute Nasal congestion acute Nasal turbinate hypertrophy acute Chronic fatigue noneactive Deviated nasal septum acute Nasal congestion acute Nasal turbinate hypertrophy acute Chronic fatigue noneactive Alee bullosa acute Deviated nasal septum acute Nasal congestion acute Nasal turbinate hypertrophy acute Family History Relationship Condition Age at Onset Recorded Date/T bonnie Not Specified Malignant neoplasm Unknown Diabetes mellitus Unknown Functional Status No Functional Status information available Goals Goals may be documented in an alternate section. Mental Status No Mental Status Information Available Medical Equipment No Medical Equipment Information available Insurance Providers Guarantor IJEOMA ARMENTA Address [address] [facility] [address] Contact Info. Home Phone: Payer Policy Id Coverage Id Subscriber's Name Subscriber Id Effective Date Expiration Date [place] [id number] IJEOMA ARELLANONEGRO [id number] SELF PAY Self N/A Plan of Treatment Future Tests Future scheduled test information is unavailable Pending Tests Pending diagnostic test information is unavailable Future Visits Future appointment information is unavailable Referrals to Other Providers Reason for Referral Referral Start Date Provider Provider Contact Information Provider Address Loida Lazar , DO Work Phone: [facility] [address] [facility] [address] Future Procedures Future procedure information is unavailable Future Medications Future medication information is unavailable Patient Instructions COVID 19 General Instruction s- decrease the spread of coronavirus ([facility]) Social History Observation Status Observation Response Date of Response Alcohol Use No March 11 1:40pm Substance/Street Drug Use No 2019 1:40pm substance use type does not use March 11, 2020 8:59am Assigned Sex Female Vital Signs Vital Reading [...] 08 1:19pm Weight 63.50 kg March 08 1:19pm Body Temperature 98.0 [degF] 97.6-99.6 February 1:19pm Heart Rate 77 /min 60-100 October 13th, 2 020 1:19pm Respiratory rate 18 /min 12-February 1:19pm BP Systolic 115 mm[Hg] 100-140 March 08, 2 020 1:19pm BP Diastolic 62 mm[Hg] 50-85 March 08, 2 020 1:19pm BMI (Body Mass Index) 20.0 kg/m2 Octobe r 2019 1:19pm Height 70 [in_i] March 11, 2 020 9:59am Weight 63.50 kg March 11, 2 020 9:59am Body Temperature 98.0 [degF] 97.6-99.6 February 12:41pm Heart Rate 77 /min 60-100 March 25, 020 12:41pm Respiratory rate 16 /min -February 12:41pm Oxygen saturation by Pulse oximetry 96 % 95-100 March 25, 2020 1 2:41pm BP Systolic 120 mm[Hg] 100-140 March 25, 2 020 12:41pm BP Diastolic 56 mm[Hg] 50-85 March 25, 2 020 12:41pm BMI (Body Mass Index) 20.0 kg/m2 Octobe r 2019 9:59am Height 70 [in_i] March 31, 020 11:36am Weight 63.50 kg March 31, 2 020 11:36am Body Temperature 97.0 [degF] 97.6-99.6 March 11:36am Heart Rate 66 /min 60-100 March 31, 2 020 11:36am Respiratory rate 20 /min 12-24 March 11:36am BP Systolic 115 mm[Hg] 100-140 March 31, 2 020 11:36am BP Diastolic 60 mm[Hg] 50-85 March 31, 2 020 11:36am BMI (Body Mass Index) 20.0 kg/m2 [facility] 11:36am
--- OUTSIDE RECORDS SUMMARY | 2023-07-09 01:08 | XMS_ITS | Continuity of Care Document ---
Author Name Unknown Address [address] [place] [address] Phone [facility] Address [address] [place] [address] Phone Support Name Relationship Address Phone GEOVANY GALLEGOS Spouse Unknown [phone] [place] [address] Loida Lazar Attending Provider [facility] [place] [address] Referral, Self Referring Provider Unknown Unavail able Allergies, Adverse Reactions, Alerts Allergen Type Severity Reaction Last Updated Verified Status Sulfa (Sulfonamide Antibiotics) Allergy itchy throat, February 01 020 11:07am Yes Active Medications Medication Status Dose Units [...] have a copy on file here at [facility]? No February 02, 2020 10:53am Pt has a Living Will? No February 02, 2020 10:53am Do we have a copy on file here at [facility]? No February 02, 2020 10:53am Pt has a Power of Board [place]? No Jan 10:53am Do we have a copy on file here at [facility]? No February 02, 2020 10:53am Chief Complaint and Reason for Visit Chief Complaint New Patient Follow Up Reason for Visit Deviated nasal septu m Nasal congestion Nasal turbinate hypertrophy Deviated nasal septum Nasal congestion Nasal turbinate hypertrophy Chronic fatigue Encounters Encounter Location(s) Arrival/Admit Date Discharge/Depart Date Provider(s) Departed Physician/Prov ider Office Visit [facility] February 02, 2020 10:53am February 02, 2020 11:43am Loida Lazar DO Departed Physician/Prov ider Office Visit [facility] February 29, 2020 1:19pm February 29, 2020 1:19pm Loida Lazar DO Recent Diagnosis Onset Date [...] available Insurance Providers Guarantor IJEOMA ARMENTA Address [address] [place] [address] Contact Info. Home Phone: Payer Policy Id Coverage Id Subscriber's Name Subscriber Id Effective Date Expiration Date [place] [id number] IJEOMA ARMENTA [id number] SELF PAY Self N/A Social History Assigned [...]
--- NOTE | 2023-07-09 08:30 | DI.MAMMO_ITS ---
Exam(s) MAMMO SCREENING EXAM: MAMMO SCREENING CLINICAL HISTORY: screening TECHNIQUE: Bilateral full field digital CC and MLO mammographic images were obtained with 3D tomosyn thesis and utilizing computer aided detection (CAD). COMPARISON: Available for comparison. FINDINGS: Masses/Architectural Distortion: None seen. Microcalcifications: No suspicious pleomorphic-type are seen. Skin Thickening/Nipple Retraction: None. IMPRESSION: 1. No significant interval change with no specific features of malignancy noted. 2. Unless there is more urgent need, screening mammography is recommended, as per [place] guidelines. BI-RADS Category 1 - Negative Breast Density - Category C - Heterogeneously dense Breast density category C or D implies that the patient has dense breast tissue. Dense breast tissue is very common and is not abnormal but dense breast tissue can make it harder to find cancer on a ma mmogram. Also, dense breast tissue may increase their breast cancer risk. This information about the result of the mammogram report was provided to the patient to raise their awareness. Use this report when you speak with the patient about their risks for breast cancer, which includes their family hist ory. At that time, you may recommend for more screening tests (Ultrasound or MRI) as they might be us eful based on their risk. A negative radiographic report should not delay biopsy if a dominant or clinically suspicious mass is present. Up to ten percent of cancers are not identified on mammography. A negative report may reinforce clinical impression. Adenosis and dense breasts may obscure an underlying neoplasm. False positive reports average 6 to 10%. Patient will receive a letter notifying them of these results.
== END ==
PROVIDERS: PCP Naturopath; Visit Provider Obstetrics & Gynecology Gynecology
DX: Z12.31 Encounter for screening mammogram for malignant neoplasm of breast (principal)
CPT/HCPCS: 77063; 77067

== ENCOUNTER 2023-09-12 17:16 | Outpatient (REF) | payer BC, SELFPAY ==
[2023-09-12 19:31] LABS: Iron 57 ug/dL (50-170); Total Iron Binding Capacity 386 ug/dL (250-450); Transferrin Sat 15 % (15-50)
[2023-09-12 19:56] LABS: ALT 20 U/L (14-59); AST 12 U/L (15-37); Albumin 3.9 g/dL (3.4-5.0); Alkaline Phosphatase 59 U/L (46-116); Anion Gap 10.3 mmol/L (3-11); BUN 13 mg/dL (7-18); Bilirubin, Total 0.2 mg/dL (0.2-1.0); CO2 24.7 mmol/L (21.0-32.0); CREATININE 0.7 mg/dL (0.55-1.02); Calcium 9.1 mg/dL (8.5-10.1); Calculated LDL 138 mg/dL (<100); Chloride 105 mmol/L (98-107); Cholesterol 228 mg/dL (<200); Estimated GFR 109.98 (mL/min/1.73m2); Ferritin 17 ng/mL (8-252); Folate 4.3 ng/mL (8.6-20.0); Glucose 96 mg/dL (74-106); HDL Cholesterol 62 mg/dL (40-60); Sodium 140 mmol/L (136-145); TSH (W/Ref FT4) 1.47 uIU/mL (0.36-3.74); Triglyceride 143 mg/dL (<150); Vitamin B12 338 pg/mL (193-986)
[2023-09-12 20:36] LABS: Vitamin D 25 Total 41.3 ng/mL (30-100)
== END 2023-09-12 17:17 | disposition home or self-care (01) ==
LOC: NCHCN 17:16
PROVIDERS: PCP Naturopath; Visit Provider Nurse Practitioner Family
DX: Z13.6 Encounter for screening for cardiovascular disorders (principal); E55.9 Vitamin D deficiency, unspecified; Z86.39 Personal history of other endocrine, nutritional and metabolic disease; Z13.228 Encounter for screening for other metabolic disorders
CPT/HCPCS: 80053; 80061; 82306; 82607; 82728; 82746; 83540; 83550; 84443; 85025

== ENCOUNTER 2024-08-05 15:59 | Outpatient (REF) | payer BC, SELFPAY ==
--- NOTE | 2024-08-05 15:15 | PAPFT_PTH ---
PATIENT: Suri Cuellar LOC: [facility] U#:[id number] AGE/SX: 44/F ROOM: RE08/05/[address]: Amanda Lorenzo MD : 1980 BED: DIS: 08/05/2024 SPEC #: [id number] RECD: 08/05/24 17:41 STATUS: LANIE REAndres #: [id number] GERMAN: 08/05/24 15:[address]: Amanda Lorenzo DEPT: [facility] Cytology RECD BY: Nighat Ahn ENTERED: 08/05/24 17:41 SP TYPE: PAPFT OTHR DR: Lucero Albert Tissues: 1 - CX/ENDOCX FOR PAP SMEARS Procedures: PAP THIN PREP/UVM Screening HPV DNA PROBE Comments: [id number] (HPV 16 & 18/45)
== END 2024-08-05 16:00 | disposition home or self-care (01) ==
LOC: LBN 15:59
PROVIDERS: PCP Naturopath; Visit Provider Obstetrics & Gynecology
DX: Z11.51 Encounter for screening for human papillomavirus (HPV) (principal); Z01.419 Encounter for gynecological examination (general) (routine) without abnormal findings; R87.619 Unspecified abnormal cytological findings in specimens from cervix uteri
CPT/HCPCS: 88142; 87624

== ENCOUNTER 2024-09-02 00:41 | Outpatient (CLI) | payer BC, SELFPAY ==
--- NOTE | 2024-09-02 09:15 | DI.MAMMO_ITS ---
Exam(s) MAMMO SCREENING EXAM: MAMMO SCREENING CLINICAL HISTORY: screening TECHNIQUE: Bilateral full field digital CC and MLO mammographic images were obtained with 3D tomosyn thesis and utilizing computer aided detection (CAD). COMPARISON: Available for comparison. FINDINGS: Masses/Architectural Distortion: None seen. Microcalcifications: No suspicious pleomorphic-type are seen. Skin Thickening/Nipple Retraction: None. IMPRESSION: 1. No significant interval change with no specific features of malignancy noted. 2. Unless there is more urgent need, screening mammography is recommended, as per [place] [employer] guidelines. BI-RADS Category 1 - Negative Breast Density - Category C - Heterogeneously dense Breast density category C or D implies that the patient has dense breast tissue. Dense breast tissue is very common and is not abnormal but dense breast tissue can make it harder to find cancer on a ma mmogram. Also, dense breast tissue may increase their breast cancer risk. This information about the result of the mammogram report was provided to the patient to raise their awareness. Use this report when you speak with the patient about their risks for breast cancer, which includes their family hist ory. At that time, you may recommend for more screening tests (Ultrasound or MRI) as they might be us eful based on their risk. A negative radiographic report should not delay biopsy if a dominant or clinically suspicious mass is present. Up to ten percent of cancers are not identified on mammography. A negative report may reinforce clinical impression. Adenosis and dense breasts may obscure an underlying neoplasm. False positive reports average 6 to 10%. Patient will receive a letter notifying them of these results.
== END 2024-09-02 01:01 ==
LOC: DI 00:41
PROVIDERS: PCP Naturopath; Visit Provider Obstetrics & Gynecology
DX: Z12.31 Encounter for screening mammogram for malignant neoplasm of breast (principal); R92.333 Mammographic heterogeneous density, bilateral breasts
CPT/HCPCS: 77063; 77067

== ENCOUNTER 2024-09-07 10:18 | Outpatient (REF) | payer BC, SELFPAY ==
--- NOTE | 2024-09-07 10:40 | CER_PTH ---
PATIENT: Suri Cuellar LOC: [facility] U#:[id number] AGE/SX: 44/F ROOM: RE09/07/[address]: Amanda Lorenzo MD : 1980 BED: DIS: 09/07/2024 SPEC #: [id number] RECD: 09/07/24 13:03 STATUS: LANIE REQ #: [id number] GERMAN: 09/07/24 10:[address]: Amanda Lorenzo DEPT: Surgical Specimen RECD BY: Nighat Ahn ENTERED: 09/07/24 13:04 SP TYPE: CER OTHR DR: Lucero Albert Tissues: 1 - CERVICAL BIOPSY Procedures: GROSS AND MICRO LEVEL 4 Comments: [id number]
== END 2024-09-07 10:19 | disposition home or self-care (01) ==
LOC: LBN 10:18
PROVIDERS: PCP Naturopath; Visit Provider Obstetrics & Gynecology
DX: N72 Inflammatory disease of cervix uteri
CPT/HCPCS: 88305